=== PATIENT | female | born 1960 | race Caucasian/White ===

== ENCOUNTER → 2017-12-07 | Outpatient (REF) | payer BC | LOC: M LAB REF 11:52 | DX: N39.0 Urinary tract infection, site not specified (principal) | CPT/HCPCS: 87086 ==

== ENCOUNTER → 2018-06-21 | Outpatient (CLI) | payer BC | LOC: M WHC 16:08 | DX: Z12.31 Encounter for screening mammogram for malignant neoplasm of breast (principal); Z78.0 Asymptomatic menopausal state; Z92.89 Personal history of other medical treatment; Z80.42 Family history of malignant neoplasm of prostate | CPT/HCPCS: 77067 ==

== ENCOUNTER → 2018-07-03 | Outpatient (REF) | payer BC | LOC: M SFHCLERA 17:55 | DX: R30.0 Dysuria (principal) | CPT/HCPCS: 87186 ==

== ENCOUNTER → 2018-08-04 | Outpatient (REF) | payer BC | LOC: M SFHCLERA 11:41 | PROVIDERS: ATTEND Physician Assistant | DX: R30.0 Dysuria (principal) ==

== ENCOUNTER → 2019-06-27 | Outpatient (REF) | payer BC | LOC: M SFHCWAGY 10:45 | PROVIDERS: ATTEND Nurse Practitioner Women's Health | DX: Z12.4 Encounter for screening for malignant neoplasm of cervix (principal); N95.2 Postmenopausal atrophic vaginitis | CPT/HCPCS: 87624; G0123 ==

== ENCOUNTER → 2019-06-27 | Outpatient (CLI) | payer BC ==
--- NOTE | 2019-06-27 11:38 | REPMRS ---
Patient History The patient states she had a clinical breast exam in 06/2019. Patient is postmenopausal. Family history of prostate cancer at age 60 in father, breast cancer at age 30 in paternal cousin, breast cancer at age 64 in sister. Benign core biopsy of the left breast. No Hormone Replacement Therapy Digital Woman Screen Mammo: June 27, 2019 - Exam #: [id number] Bilateral CC and MLO view(s) were taken. Technologist: Kaylin Pride, Technologist Prior study comparison: June 21, 2018, bilateral digital woman screen mammo performed at [facility]. June 29, 2016, digital woman screen mammo performed at [facility]. June 24, 2015, digital bilateral screening mammo, performed at [facility]. FINDINGS: The breast tissue is heterogeneously dense. This may lower the sensitivity of mammography. There are two needle biopsy marker clips again noted in the left breast unchanged. There is a moderate amount of heterogeneously dense fibroglandular tissue which is fairly symmetric. There is no interval development of dominant mass, architectural distortion, or grouped microcalcification typical of malignancy. There has been no change in the appearance of the mammogram from the prior studies. 3-D tomosynthesis shows no additional findings. Assessment: BI-RADS/ACR category 2 mammogram. Benign Findings. Recommendation Routine screening mammogram of both breasts in 1 year (for women over age 40). This patient's Lifetime Breast Cancer RIsk is estimated at 12.7 %. This mammogram was interpreted with the aid of an FDA-approved computer-aided dectection system. Electronically Signed By: Doug Hsu MD 06/27/19 [id number]
== END ==
LOC: M WHC 09:01
PROVIDERS: ATTEND Nurse Practitioner Women's Health
DX: Z12.31 Encounter for screening mammogram for malignant neoplasm of breast (principal); Z80.42 Family history of malignant neoplasm of prostate; Z80.3 Family history of malignant neoplasm of breast

== ENCOUNTER → 2020-04-07 | Outpatient (CLI) | payer BC ==
[~2020-04-07] MED LIST: PROHANCE 279.3MG/ML 15ML VIAL As Ordered ONE
--- NOTE | 2020-05-13 09:05 | REP ---
MRI STUDY OF THE BREAST WITHOUT AND WITH IV GADOLINIUM: HISTORY: Atypical ductal hyperplasia. Dense breast tissue on mammography. COMPARISON: Mammography from 06/27/19. GADOLINIUM ENHANCEMENT DOSE: 13 ml of intravenous ProHance. FINDINGS: There is moderate fibroglandular tissue pattern bilaterally and symmetrically correlating with dense tissue mammographically. There is no evidence of axillary adenopathy on either side. There is an oval shaped T2 hyperintense cyst inferiorly in the left breast measuring 12 mm in greatest diameter. There are some minimally prominent breast ducts bilaterally. There is a mild pattern of background parenchymal enhancement. No suspicious focus of enhancement and washout kinetics is seen on dynamically acquired post contrast images to suggest malignancy. Subtraction images are unremarkable. There are magnetic field susceptibility artifacts from two needle biopsy marker clips in the upper outer quadrant of the left breast. IMPRESSION: BI-RADS category 2 benign findings. MTDD
== END ==
LOC: M RAD 13:00
PROVIDERS: ATTEND Nurse Practitioner Women's Health
DX: R92.2 Inconclusive mammogram (principal); N60.92 Unspecified benign mammary dysplasia of left breast
CPT/HCPCS: A9576; C8908

== ENCOUNTER → 2020-06-30 | Outpatient (CLI) | payer BC ==
--- NOTE | 2020-06-30 11:31 | REPMRS ---
Patient History The patient states she had a clinical breast exam in 06/2020. Family history of prostate cancer at age 60 in father, breast cancer at age 30 in paternal cousin, breast cancer at age 64 in sister, prostate cancer at age 50 or over in paternal grandfather, prostate cancer at age 50 or over in paternal uncle. Benign core biopsy of the left breast. No Hormone Replacement Therapy Digital Woman Screen Mammo: June 30, 2020 - Exam #: [id number] Bilateral CC and MLO view(s) were taken. Technologist: Milagros Theodore, Technologist Prior study comparison: June 27, 2019, bilateral digital woman screen mammo performed at [facility]. June 21, 2018, bilateral digital woman screen mammo performed at [facility]. June 29, 2016, digital woman screen mammo performed at [facility]. FINDINGS: There are scattered fibroglandular densities. The Volpara volumetric breast density category is: B. There are 2 needle biopsy marker clips again noted in the upper outer quadrant of the left breast. There is a moderate amount of residual fibroglandular tissue which is fairly symmetric. There is no interval development of dominant mass, architectural distortion, or grouped microcalcification typical of malignancy. There has been no change in the appearance of the mammogram from the prior studies. 3-D tomosynthesis shows no additional findings. Assessment: BI-RADS/ACR category 2 mammogram. Benign Findings. Recommendation Breast MRI of both breasts in 6 months. Routine screening mammogram of both breasts in 1 year (for women over age 40). This patient's Lifetime Breast Cancer RIsk is estimated at 34.1 %. Annual screening Breast MRI scanniing is recommended for patient's whose lifetime risk assessment is over 20%. This mammogram was interpreted with the aid of an FDA-approved computer-aided dectection system. Electronically Signed By: Doug Hsu MD 06/30/20 [id number]
== END ==
LOC: M WHC 08:55
PROVIDERS: ATTEND Nurse Practitioner Women's Health
DX: Z12.31 Encounter for screening mammogram for malignant neoplasm of breast (principal); Z80.42 Family history of malignant neoplasm of prostate; Z80.3 Family history of malignant neoplasm of breast

== ENCOUNTER → 2021-04-14 | Outpatient (CLI) | payer BC ==
--- NOTE | 2021-04-14 15:15 | REP ---
INDICATION: ATYPICAL HYPERPLASIA LT BREAST. COMPARISON: Comparison MRI study is from April 07, 2020. Comparison mammography June 30, 2020. TECHNIQUE: Three Ana MRI imaging was performed with a dedicated breast coil. Axial, coronal, and sagittal T1 and T2 weighted scans were obtained with and without fat saturation in the usual fashion. The study includes dynamically acquired post gadolinium-enhanced imaging with image subtraction. Maximum intensity projection and multi planar reformation imaging is included as well. This study is interpreted with the aid of [employer], an FDA approved computer aided detection (CAD) software program, on a dedicated breast MRI workstation. The gadolinium enhancement dose is 14 mL of intravenous ProHance. FINDINGS: There is a moderate amount of fibroglandular tissue bilaterally corresponding with the mammographic pattern. There is mild background parenchymal enhancement. There is no evidence of axillary lymphadenopathy or significant breast cystic change. High-resolution pre and post-contrast T1 and T2 weighted scans show no suspicious morphologic abnormality in either breast. Dynamically acquired sequential postcontrast images show no suspicious area of enhancement and washout kinetics in either breast to suggest malignancy. Subtraction images show no additional abnormality. There are 2 metallic field susceptibility artifacts in the left breast. A stable left breast cyst is seen inferiorly. IMPRESSION: BI-RADS category 2 benign bilateral breast MRI findings. <Electronically signed by Doug Hsu > 04/14/21 [id number]
== END ==
LOC: M RAD 09:14
PROVIDERS: ATTEND Nurse Practitioner Women's Health
DX: N60.92 Unspecified benign mammary dysplasia of left breast (principal); R92.2 Inconclusive mammogram; N60.02 Solitary cyst of left breast
CPT/HCPCS: A9576; C8908

== ENCOUNTER → 2021-07-01 | Outpatient (CLI) | payer BC ==
--- NOTE | 2021-07-01 10:36 | REPMRS ---
Patient History The patient states she had a clinical breast exam in June 2021. Family history of prostate cancer at age 60 in father, breast cancer at age 30 in paternal cousin, breast cancer at age 64 in sister, prostate cancer at age 50 or over in paternal grandfather, prostate cancer at age 50 or over in paternal uncle. Benign core biopsy of the left breast. No Hormone Replacement Therapy Tomosynthesis is performed. Volpara breast density is b. Patient states no breast complaints today. Patient has signed MRS History Sheet. Digital Woman Screen Mammo: July 01, 2021 - Exam #: [id number] Bilateral CC and MLO view(s) were taken. Technologist: Milagros Theodore, Technologist Prior study comparison: June 30, 2020, bilateral digital woman screen mammo performed at [facility]. June 27, 2019, bilateral digital woman screen mammo performed at [facility]. FINDINGS: The breast tissue is heterogeneously dense. This may lower the sensitivity of mammography. There has been no change in the appearance of the mammogram from the prior studies. There is a moderate amount of residual fibroglandular tissue which is fairly symmetric. There is no interval development of dominant mass, areas of architectural distortion, or clustered microcalcification typical of malignancy. Assessment: BI-RADS/ACR category 1 mammogram. Negative Mammogram. Recommendation Routine screening mammogram in 1 year (for women over age 40). This mammogram was interpreted with the aid of an FDA-approved computer-aided dectection system. The Lifetime Breast Cancer Risk is estimated at 33.3%. Yearly supplemental screening MRI of the breasts is recommended for patients with an elevated lifetime risk of breast cancer of 20% or greater, in addition to annual screening mammography, staggered every 6 months. Electronically Signed By: Royal Wade MD 07/01/21 [id number]
== END ==
LOC: M WHC 08:29
PROVIDERS: ATTEND Nurse Practitioner Women's Health
DX: Z12.31 Encounter for screening mammogram for malignant neoplasm of breast (principal); N60.92 Unspecified benign mammary dysplasia of left breast; Z80.3 Family history of malignant neoplasm of breast; Z80.42 Family history of malignant neoplasm of prostate

== ENCOUNTER → 2021-07-01 | Outpatient (REF) | payer BC | LOC: M SFHCWAGY 13:29 | PROVIDERS: ATTEND Nurse Practitioner Women's Health | DX: Z12.4 Encounter for screening for malignant neoplasm of cervix (principal) ==

== ENCOUNTER → 2022-08-31 | Outpatient (CLI) | payer BC | LOC: M WHC 13:41 | PROVIDERS: ATTEND Advanced Practice Midwife | DX: Z12.31 Encounter for screening mammogram for malignant neoplasm of breast (principal) ==

== ENCOUNTER → 2023-02-27 | Outpatient (CLI) | payer BC ==
[2023-02-27 15:06] LABS: ALBUMIN 4.2 G/DL (3.2-5.2); ALKALINE PHOSPHATASE 72 U/L (46-116); ALT/SGPT 13 U/L (7.0-40); AST/SGOT 25 U/L (<34); BILIRUBIN,TOTAL 0.5 MG/DL (0.3-1.2); BLOOD UREA NITROGEN 19 MG/DL (9-23); CALCIUM LEVEL 9.9 MG/DL (8.3-10.6); CARBON DIOXIDE LEVEL 27 MMOL/L (20-31); CHLORIDE LEVEL 105 MMOL/L (98-107); CREATININE FOR GFR 0.89 MG/DL (0.55-1.30); GLOMERULAR FILTRATION RATE > 60.0 (>45); GLUCOSE, FASTING 89 MG/DL (74-106); POTASSIUM SERUM 5.5 MMOL/L (3.5-5.1); SODIUM LEVEL 138 MMOL/L (136-145); TOTAL PROTEIN 7.8 G/DL (5.7-8.2)
== END ==
LOC: M PLALAB 12:28
PROVIDERS: ATTEND Advanced Practice Midwife
DX: Z15.01 Genetic susceptibility to malignant neoplasm of breast (principal); Z91.89 Other specified personal risk factors, not elsewhere classified

== ENCOUNTER → 2023-03-14 | Outpatient (CLI) | payer BC ==
[~2023-03-14] MED LIST changes: +CALC1TAB86 PO; +OMEG10002 PO; -PROHANCE 279.3MG/ML 15ML VIAL As Ordered ONE; +PROHANCE 279.3MG/ML 15ML VIAL ONE; +SUPECAP14 PO
== END ==
LOC: M PLAIMG 11:56
PROVIDERS: ATTEND Advanced Practice Midwife
DX: Z15.01 Genetic susceptibility to malignant neoplasm of breast (principal); Z91.89 Other specified personal risk factors, not elsewhere classified; R92.8 Other abnormal and inconclusive findings on diagnostic imaging of breast
CPT/HCPCS: A9576; C8908

== ENCOUNTER 2023-04-05 10:46 | Day surgery (SDC) | payer BC ==
[~2023-04-05] VITALS: Ht 171.4 cm; Wt 78.6 kg
[~2023-04-05 10:46] MED LIST changes: +NS 1,000 ML IV ONE; -PROHANCE 279.3MG/ML 15ML VIAL ONE
[2023-04-05] MEDS ORDERED: LIDOCAINE 2% 100MG/5ML SDV (FOR ANES.) As Ordered ONE (12:05)
[2023-04-05] MEDS ORDERED: propofoL 200 MG/20 ML VIAL As Ordered ONE (12:05)
[2023-04-05 12:29] VITALS: TEMP 96.3
[2023-04-05 12:51] VITALS: BP 129/61; O2SAT 96
== END 2023-04-05 13:01 | disposition home or self-care (01) ==
LOC: M OPP 10:46
PROVIDERS: ATTEND Internal Medicine Gastroenterology
DX: Z12.11 Encounter for screening for malignant neoplasm of colon (principal); Z87.891 Personal history of nicotine dependence

== ENCOUNTER → 2023-04-11 | Outpatient (CLI) | payer BC ==
[~2023-04-11] MED LIST changes: -NS 1,000 ML IV ONE
== END ==
LOC: M WHC 07:34
PROVIDERS: ATTEND Advanced Practice Midwife
DX: R92.8 Other abnormal and inconclusive findings on diagnostic imaging of breast (principal); N60.11 Diffuse cystic mastopathy of right breast

== ENCOUNTER → 2023-10-04 | Outpatient (CLI) | payer BC | LOC: M WHC 08:53 | PROVIDERS: ATTEND Advanced Practice Midwife | DX: R92.8 Other abnormal and inconclusive findings on diagnostic imaging of breast (principal); R92.321 Mammographic fibroglandular density, right breast; N60.01 Solitary cyst of right breast | CPT/HCPCS: 76642; 77066; G0279 ==

== ENCOUNTER → 2023-10-04 | Outpatient (REF) | payer BC | LOC: M PLALAB 08:03 | PROVIDERS: ATTEND Advanced Practice Midwife | DX: Z12.4 Encounter for screening for malignant neoplasm of cervix (principal); N95.2 Postmenopausal atrophic vaginitis | CPT/HCPCS: 87624; G0123 ==

== ENCOUNTER → 2024-03-25 | Outpatient (CLI) | payer BC ==
[~2024-03-25] MED LIST changes: +PROHANCE 279.3MG/ML 15ML VIAL ONE
== END ==
LOC: M PLAIMG 11:58
PROVIDERS: ATTEND Advanced Practice Midwife
DX: Z12.39 Encounter for other screening for malignant neoplasm of breast (principal); Z15.01 Genetic susceptibility to malignant neoplasm of breast; Z80.3 Family history of malignant neoplasm of breast
CPT/HCPCS: A9576; C8908

== ENCOUNTER → 2024-12-05 | Outpatient (CLI) | payer MEDICARE ==
[~2024-12-05] MED LIST changes: -PROHANCE 279.3MG/ML 15ML VIAL ONE
== END ==
LOC: M WHC 10:00
PROVIDERS: ATTEND Advanced Practice Midwife
DX: Z12.31 Encounter for screening mammogram for malignant neoplasm of breast (principal); R92.323 Mammographic fibroglandular density, bilateral breasts

== ENCOUNTER → 2024-12-05 | Outpatient (CLI) | payer MEDICARE | LOC: M WHC 10:30 | PROVIDERS: ATTEND Advanced Practice Midwife | DX: Z13.820 Encounter for screening for osteoporosis (principal); Z12.31 Encounter for screening mammogram for malignant neoplasm of breast; M85.88 Other specified disorders of bone density and structure, other site; M85.851 Other specified disorders of bone density and structure, right thigh; M85.852 Other specified disorders of bone density and structure, left thigh ==

== ENCOUNTER → 2025-06-18 | Outpatient (CLI) | payer MEDICARE ==
[~2025-06-18] MED LIST changes: +PROHANCE 279.3MG/ML 15ML VIAL ONE
== END ==
LOC: M PLAIMG 07:55
PROVIDERS: ATTEND Advanced Practice Midwife
DX: Z91.89 Other specified personal risk factors, not elsewhere classified (principal); Z80.3 Family history of malignant neoplasm of breast; R92.2 Inconclusive mammogram
CPT/HCPCS: A9576; C8908